=== PATIENT | male | born 2000 | race Caucasian/White ===

== ENCOUNTER 2021-04-23 06:38 | Emergency (ER) | payer BC, OTHER ==
[~2021-04-23] VITALS: Ht 185.4 cm; Wt 131.5 kg
[2021-04-23 06:49] VITALS: BP 132/90
--- NOTE | 2021-04-23 06:52 | NUR ---
TO LOBBY A/W BED VIA WHEELCHAIR
[2021-04-23] MEDS ORDERED: DEXAMETHASONE 10 MG/ML VIAL IM ONE (07:15)
[2021-04-23] MEDS ORDERED: KETOROLAC 30 MG/ML VIAL IM ONE (07:15)
[2021-04-23] MEDS ORDERED: KETOROLAC 30 MG/ML VIAL ONE (08:21)
[2021-04-23] MEDS ORDERED: DEXAMETHASONE 10 MG/ML VIAL ONE (08:22)
[2021-04-23 08:33] VITALS: BP 139/80
--- NOTE | 2021-04-23 08:34 | NUR ---
Patient discharged with v/s stable. Written and verbal after care instructions given and explained. Patient verbalized understanding. Ambulatory with steady gait. All questions addressed prior to discharge. Advised to follow up with PMD.
[2021-04-23 09:51] LABS: APPEARANCE,URINE CLEAR (CLEAR); BILIRUBIN,URINE NEGATIVE (NEGATIVE); BLOOD, URINE TRACE-I (NEGATIVE); COLOR,URINE YELLOW (YELLOW); LEUKOCYTE ESTERASE ,URINE NEGATIVE (NEGATIVE); NITRITE, URINE NEGATIVE (NEGATIVE); UGLUCOSE NEGATIVE (NEGATIVE)
[2021-04-23 10:11] LABS: RBC,URINE 0-5 /HPF (0-5); WBC,URINE 0-5 /HPF (0-5)
== END 2021-04-23 08:34 | disposition home or self-care (01) ==
LOC: MED 06:38
DX: S39.012A Strain of muscle, fascia and tendon of lower back, initial encounter (principal); X58.XXXA Exposure to other specified factors, initial encounter; Y93.89 Activity, other specified; Y92.89 Other specified places as the place of occurrence of the external cause; Y99.8 Other external cause status
CPT/HCPCS: 81001; 96372; 99284; J1100; J1885